=== PATIENT | male | born 1995 ===

== ENCOUNTER 2018-01-05 23:55 | Emergency (ER) | payer SELFPAY ==
[2018-01-06 04:23] LABS: Bilirubin,Urine NEG (Negative); Blood,Urine NEG (Negative); Color,Urine Yellow (Yellow); Mucus,Urine FEW /HPF; Protein,Urine <15 mg/dL mg/dL (Negative); Urobilinogen,Urine < 2.0 mg/dL (<2.0)
[2018-01-06] MEDS ORDERED: FLAGYL PO ONE (05:34)
[2018-01-06] MEDS ORDERED: ZITHROMAX PO ONE (05:34)
[2018-01-06] MEDS ORDERED: XYLOCAINE 1% MPF 5 mL INFILTRATI ONE (05:34)
[2018-01-06] MEDS ORDERED: ROCEPHIN IM STA (05:34)
--- NOTE | 2018-01-06 05:34 | Emergency Department Report ---
ED Male HPI - General Chief complaint: Urogenital-Male Stated complaint: CHECK FOR STD Time Seen by Provider: 01/06/18 05:00 Source: patient Mode of arrival: Ambulatory Limitations: No Limitations - History of Present Illness Initial comments: Patient here for that he is having penile discharge times one week with some burning. He reports that he had unprotected sex and this is been going on and unsure as to person that he had unprotected sex is having the same symptoms he could eat and act. Denies any nausea vomiting. Denies any back pain or abdominal pain. Denies any fever or chills. History of asthma. MD Complaint: penile discharge, dysuria Onset/Timin -: week(s) Radiation: none Severity scale (0 -10): 0 Quality: burning (none now) new sexual partner discharge, dysuria. denies: swelling, mass, rash, urinary retention, blood in urine, fever, nausea/vomiting, incontinence - Related Data Sexually active: Yes Previous Rx's Medication Instructions Recorded Last Taken Type Ciprofloxacin HCl [Cipro] 500 mg PO Q12H 7 Days #14 tablet 01/06/18 Unknown Rx Allergies Allergy/AdvReac Type Severity Reaction Status Date / Time No Known Allergies Allergy Unverified 01/06/18 01:39 ED Review of Systems ROS: Stated complaint: CHECK FOR STD Other details as noted in HPI Constitutional: denies: chills, fever ENT: denies: ear pain, throat pain Respiratory: denies: cough, shortness of breath, SOB with exertion, SOB at rest , stridor, wheezing Cardiovascular: denies: chest pain, palpitations Gastrointestinal: denies: abdominal pain, nausea, diarrhea Genitourinary: dysuria, discharge. denies: urgency, frequency, hematuria, testicular pain, testicular mass Musculoskeletal: denies: back pain, joint swelling, arthralgia, myalgia Skin: denies: rash, lesions, pruritus Neurological: denies: headache Hematological/Lymphatic: easy bleeding ED Past Medical Hx - Past Medical History Previous Medical History?: Yes Hx Asthma: Yes - Surgical History Past Surgical History?: No - Family History Family history: hypertension - Social History Smoking Status: Current Every Day Smoker Substance Use Type: Marijuana Other Social History: single and lives with family - Medications Home Medications: Home Medications Medication Instructions Recorded Confirmed Last Taken Type Ciprofloxacin HCl [Cipro] 500 mg PO Q12H 7 Days #14 tablet 01/06/18 Unknown Rx ED Physical Exam - General Limitations: No Limitations General appearance: alert, in no apparent distress - Head Head exam: Present: atraumatic, normocephalic, normal inspection - Eye Eye exam: Present: normal appearance - ENT ENT exam: Present: normal exam, normal orophraynx, mucous membranes moist - Neck Neck exam: Present: normal inspection, full ROM. Absent: tenderness, lymphadenopathy - Respiratory Respiratory exam: Present: normal lung sounds bilaterally. Absent: respiratory distress - Cardiovascular Cardiovascular Exam: Present: regular rate, normal rhythm, normal heart sounds. Absent: systolic murmur, diastolic murmur - GI/Abdominal GI/Abdominal exam: Present: soft, normal bowel sounds. Absent: distended, tenderness, guarding, rebound, rigid, mass, bruit, pulsatile mass, hernia - Extremities Exam Extremities exam: Present: normal inspection, full ROM, normal capillary refill , other (no clubbing cyanosis or edema. +2 pulses all extremities ). Absent: tenderness, pedal edema, joint swelling, calf tenderness - Back Exam Back exam: Present: normal inspection, full ROM, other (ambulates without any difficulties). Absent: tenderness, CVA tenderness (R), CVA tenderness (L), muscle spasm, paraspinal tenderness, vertebral tenderness, rash noted - Neurological Exam Neurological exam: Present: alert, oriented X3, normal gait - Psychiatric Psychiatric exam: Present: normal affect, normal mood - Skin Skin exam: Present: warm, dry, intact, normal color. Absent: rash ED Course Vital Signs 01/06/18 01:20 Temperature 98.3 F Pulse Rate 82 Respiratory 16 Rate Blood Pressure 119/80 O2 Sat by Pulse 100 Oximetry - Reevaluation(s) Reevaluation #1: 01/06/18 07:06 Patient treated emergency room with Rocephin 250 mg IM to treat gonorrhea, Zithromax 1 g by mouth to treat Chlamydia and Flagyl 2 g by mouth to treat Trichomonas. Patient had no adverse reaction from medication. ED Medical Decision Making - Lab Data Lab Results 01/06/18 Range/Units 03:36 Urine Color Yellow (Yellow) Urine Turbidity Clear (Clear) Urine pH 5.0 (5.0-7.0) Ur Specific [place] 1.023 (1.003-1.030) Urine Protein <15 mg/dl (Negative) mg/dL Urine Glucose (UA) Neg (Negative) mg/dL Urine Ketones Neg (Negative) mg/dL Urine Blood Neg (Negative) Urine Nitrite Neg (Negative) Urine Bilirubin Neg (Negative) Urine Urobilinogen < 2.0 (<2.0) mg/dL Ur Leukocyte Esterase Tr (Negative) Urine WBC (Auto) 16.0 H (0.0-6.0) /HPF Urine RBC (Auto) 2.0 (0.0-6.0) /HPF Urine Mucus Few /HPF Urine culture sent - Medical Decision Making Patient treated for STD per request in emergency room. Patient found to have trace leukocyte Estrace and 16 white count in his urine. I discussed with family that he probably has STD and I will treat him for gonorrhea, chlamydia and Trichomonas. I told him I'll also treat him for urinary tract infection. Patient agrees. Patient was given Rocephin 250 mg IM for gonorrhea, azithromycin 1 g by mouth for chlamydia and Flagyl 2 g by mouth for Trichomonas. He had no adverse reaction from medication. Patient discharged home and instructed on safe sex and to let his partner know that he was treated in the emergency room for STD and she will need to go get checked. Patient given prescription for ciprofloxacin to treat urinary tract infection. Patient doesn't have a primary care physician so I told him to follow-up with [facility], [facility], and [facility] or [facility] for STD check and repeat urinalysis in 7-10 days. He voiced understanding and discharged home in stable condition. Critical care attestation.: If time is entered above; I have spent that time in minutes in the direct care of this critically ill patient, excluding procedure time. ED Disposition Clinical Impression: Concern about STD in male without diagnosis, Penile discharge, Dysuria UTI (urinary tract infection) Qualifiers: Urinary tract infection type: acute cystitis Hematuria presence: without hematuria Qualified Code(s): N30.00 - Acute cystitis without hematuria Disposition: TO HOME OR SELFCARE Is pt being admited?: No Does the pt Need Aspirin: No Condition: Stable Instructions: Sexually Transmitted Diseases (ED), Dysuria (ED), Urinary Tract Infection in Men (ED) Additional Instructions: Please follow up with [facility] cutting of the department, the primary care physician and if he do not have a primary care physician follow-up at [facility] or [facility] and 7-10 days to have repeat urinalysis and for STD testing. Practice safe sex Please let partner know the year treated for STD in emergency room and the year she will need to get checked You're treated for gonorrhea, chlamydia and Trichomonas in emergency room today and she did not need any more treatment but you need to refrain from having sexual activity for the next 2 weeks and also refrain from drinking alcohol over the next 1 week as medication given for Trichomonas can cause negative reaction with alcohol. Prescriptions: Ciprofloxacin HCl [Cipro] 500 mg PO Q12H 7 Days #14 tablet Referrals: [facility] [Outside] - 7-10 days [facility] [Outside] - 7-10 days [facility] [Outside] - 7-10 days Forms: Work/School Release Form(ED)
[2018-01-06 07:31] VITALS: BP 118/70
== END 2018-01-06 07:31 | disposition home or self-care (01) ==
LOC: ED 23:55
DX: N39.0 Urinary tract infection, site not specified (principal); J45.909 Unspecified asthma, uncomplicated; F17.200 Nicotine dependence, unspecified, uncomplicated; F12.10 Cannabis abuse, uncomplicated
CPT/HCPCS: 81001; 87086; 96372; 99283; J0696

== ENCOUNTER 2019-06-07 00:48 | Emergency (ER) | payer SELFPAY ==
--- NOTE | 2019-06-07 01:43 | Emergency Department Report ---
ED General Adult HPI - General Chief complaint: Dizziness Stated complaint: DIZZY Time Seen by Provider: 06/07/19 01:14 Source: patient, EMS Mode of arrival: Ambulatory Limitations: No Limitations - History of Present Illness Initial comments: 24-year-old -[place] male presents to the emergency room for a cystlike structure on the upper buttocks. Patient reports it is been there 2 days. Patient reports a past medical history of asthma. Patient denies any fever chills nausea vomiting. Denies any drainage. Onset/Timin -: days(s) - Related Data Previous Rx's Medication Instructions Recorded Last Taken Type Ciprofloxacin HCl [Cipro] 500 mg PO Q12H 7 Days #14 tablet 01/06/18 Unknown Rx Doxycycline Hyclate [Doxycycline 100 mg PO Q12HR #20 tab 06/07/19 Unknown Rx Hyclate TAB] Ibuprofen [Motrin 800 MG tab] 800 mg PO Q8HR PRN #30 tablet 06/07/19 Unknown Rx Allergies Allergy/AdvReac Type Severity Reaction Status Date / Time shellfish derived Allergy Angioedema Verified 06/07/19 00:55 ED Review of Systems ROS: Stated complaint: DIZZY Other details as noted in HPI Comment: All other systems reviewed and negative Skin: lesions ED Past Medical Hx - Past Medical History Previous Medical History?: Yes Hx Asthma: Yes - Surgical History Past Surgical History?: No - Social History Smoking Status: Current Every Day Smoker Substance Use Type: None - Medications Home Medications: Home Medications Medication Instructions Recorded Confirmed Last Taken Type Ciprofloxacin HCl [Cipro] 500 mg PO Q12H 7 Days #14 tablet 01/06/18 Unknown Rx Doxycycline Hyclate [Doxycycline 100 mg PO Q12HR #20 tab 06/07/19 Unknown Rx Hyclate TAB] Ibuprofen [Motrin 800 MG tab] 800 mg PO Q8HR PRN #30 tablet 06/07/19 Unknown Rx ED Physical Exam - General Limitations: No Limitations General appearance: alert, in no apparent distress - Head Head exam: Present: atraumatic, normocephalic - Eye Eye exam: Present: normal appearance - ENT ENT exam: Present: mucous membranes moist - Neurological Exam Neurological exam: Present: alert, oriented X3 - Psychiatric Psychiatric exam: Present: normal affect, normal mood - Expanded Skin Exam Expanded Type of lesion: Present: abscess Description of rash: Present: size (3cm x3 cm), tenderness, swelling, indurated. Absent: discharge, fluctuant Critical care attestation.: If time is entered above; I have spent that time in minutes in the direct care of this critically ill patient, excluding procedure time. ED Disposition Clinical Impression: Cellulitis of gluteal region Disposition: TO HOME OR SELFCARE Is pt being admited?: No Does the pt Need Aspirin: No Condition: Stable Instructions: Cellulitis (ED) Additional Instructions: Complete antibiotics as prescribed take pain medication as needed. Please apply warm compresses to area of concern 3 times a day. Prescriptions: Doxycycline Hyclate [Doxycycline Hyclate TAB] 100 mg PO Q12HR #20 tab Ibuprofen [Motrin 800 MG tab] 800 mg PO Q8HR PRN #30 tablet PRN Reason: Pain , Severe (7-10) Referrals: [facility] [Outside] - 3-5 Days [facility] [Outside] - 3-5 Days Forms: Work/School Release Form(ED)
[2019-06-07 02:06] VITALS: BP 117/67
== END 2019-06-07 02:00 | disposition home or self-care (01) ==
LOC: ED 00:48
DX: L03.317 Cellulitis of buttock (principal); F17.200 Nicotine dependence, unspecified, uncomplicated; J45.909 Unspecified asthma, uncomplicated; Z79.899 Other long term (current) drug therapy; Z91.013 Allergy to seafood